=== PATIENT | female | born 1975 | race African-American/Black ===

== ENCOUNTER → 2019-05-12 | Outpatient (CLI) | payer OTHER ==
--- NOTE | 2019-05-12 13:03 | Diagnostic Imaging Report ---
TECHNIQUE: Magnetic resonance imaging of the LEFT WRIST was performed WITHOUT injected contrast, on a 1.5 seferino magnet. HISTORY: Pain COMPARISON: None available. FINDINGS: Bone and bone marrow: No focal or infiltrative bone marrow replacing abnormality. No acute fracture or osteonecrosis. The osseous alignment is within normal limits. Joints: Fluid within the joints is within physiologic limits. The joints spaces are well maintained. Ligaments: Scapholunate: Intact Lunotriquetral: Intact Triangular fibrocartilage complex: Intact Extrinsic ligaments: Intact Tendons: Tendinopathy of the first extensor compartment most prominent involving the extensor pollicis brevis Carpal tunnel: The median nerve is within normal limits. Other soft tissues: 1 cm volar carpal ganglion cyst coming from the radiocarpal joint. IMPRESSION: First extensor tendon compartment tendinopathy (Dequervain' s) Signed by: Dr. Jace Morel M.D. on 05/12/2019 1:00 PM
== END ==
LOC: MRI 10:55
PROVIDERS: ATTEND Specialist
DX: M25.532 Pain in left wrist (principal); M79.642 Pain in left hand; M65.4 Radial styloid tenosynovitis [de Quervain]